=== PATIENT | female | born 1955 | race Caucasian/White ===

== ENCOUNTER 2019-03-18 18:01 | Emergency (ER) | payer OTHER ==
[~2019-03-18] VITALS: Ht 167.6 cm; Wt 66.0 kg
[2019-03-18 18:13] VITALS: BP 195/111
== END 2019-03-19 07:31 | disposition left against medical advice (07) ==
LOC: ER 19:00
DX: R30.0 Dysuria (principal); Z53.21 Procedure and treatment not carried out due to patient leaving prior to being seen by health care provider